=== PATIENT | male | born 1985 | race Caucasian/White ===

== ENCOUNTER 2016-12-05 21:20 | Emergency (ER) | payer SELFPAY ==
[~2016-12-05] VITALS: Ht 188 cm; Wt 145.1 kg
--- NOTE | 2016-12-05 21:30 | NUR ---
TO BED 2 AMBULATORY STATED"IT FEELS LIKE FOOD IS STUCK IN MY THROAT" PT AAOX4 NO ACUTE DISTRESS NOTED, RESP EVEN AND UNLABORED, LUNG SOUNDS CLEAR BILATERALLY ON AUSCULTATION, PT ABLE TO SPEAK IN FULL SENTENCES. PENDING ER MD WADDELL.
== END 2016-12-05 22:44 | disposition home or self-care (01) ==
LOC: ER 21:23
DX: R13.10 Dysphagia, unspecified (principal); E11.9 Type 2 diabetes mellitus without complications; F41.9 Anxiety disorder, unspecified
CPT/HCPCS: A4606; Z7502; Z7610